=== PATIENT | female | born 2000 | race Two or more races ===

== ENCOUNTER 2024-04-02 13:12 | Emergency (ER) | payer MEDICAID ==
[~2024-04-02] VITALS: Ht 170.2 cm; Wt 52.6 kg
[2024-04-02 14:30] LABS: Basophils # (auto) 0 10 ^3/uL (0-0.2); Basophils % (auto) 0.6 % (0.0-2.0); Eosinophils # (auto) 0.3 10 ^3/uL (0-0.8); Eosinophils % (auto) 4.3 % (0.0-7.0); Hematocrit 37.6 % (36.0-46.0); Hemoglobin 13.2 g/dL (12.2-16.2); Lymphocytes # (auto) 1.1 10 ^3/uL (0.4-5.4); Lymphocytes % (auto) 16.4 % (10.0-50.0); Mean Corpuscular Hemoglobin 33.2 pg (28.0-32.0); Mean Corpuscular Hgb Conc. 35.2 g/dL (32.0-36.0); Mean Corpuscular Volume 94.4 fL (80.0-100.0); Monocytes # (auto) 0.6 10 ^3/uL (0-1.3); Monocytes % (auto) 8.6 % (0.0-12.0); Neutrophils # (auto) 4.6 10 ^3/uL (1.6-8.6); Neutrophils % (auto) 70.1 % (37.0-80.0); Platelet Count (auto) 220 10^3/uL (140-450); Red Blood Cells 3.99 10^6/uL (4.0-5.20); Red Cell Distribution Width 12.7 % (11.8-14.3); White Blood Cell 6.5 10^3/uL (4.4-10.8)
[2024-04-02] MEDS: ACETAMINOPHEN 500 MG TAB PO ONE (15:10)
[2024-04-02 15:29] LABS: Alanine Aminotransferase 14 U/L (7-40); Albumin 4.3 g/dL (3.2-4.8); Alkaline Phosphatase 43 U/L (46-116); Anion Gap 8 (5-15); Aspartate Aminotransferase 12 U/L (13-40); BUN/Creatinine Ratio 13.6 (10.0-20.0); Bilirubin, Total 0.4 mg/dL (0.2-1.0); Blood Urea Nitrogen 9 mg/dL (9-23); Calcium 9.6 mg/dL (8.7-10.4); Carbon Dioxide 22 mmol/L (20-30); Chloride 105 mmol/L (98-107); Glucose 71 mg/dL (74-106); Magnesium 1.8 mg/dL (1.6-2.6); Sodium 135 mmol/L (136-145); Uric Acid 3.9 mg/dL (3.1-7.8)
[2024-04-02 15:47] LABS: Urine Bacteria None Seen /hpf (None Seen)
[2024-04-02 16:17] LABS: Urine Blood Negative /uL (Negative); Urine Clarity Clear (Clear); Urine Color Light-Yellow (Yellow); Urine Protein, UAD TRACE (Negative); Urine Specific Gravity 1.025 (1.001-1.035); Urine Urobilinogen Normal (Negative); Urine WBC <1 /hpf (0 - 5); Urine pH 6.5 (5.0-9.0)
[2024-04-02] MEDS: SODIUM CHLORIDE 0.9% 1,000 ML IV ONE (17:11)
[2024-04-02 18:08] VITALS: BP 101/67; PULSE 83; RESP 17; TEMP 98.6; O2SAT 100
== END 2024-04-02 18:13 | disposition home or self-care (01) ==
LOC: ER 13:12
DX: O26.891 Other specified pregnancy related conditions, first trimester (principal); R51.9 Headache, unspecified; Z3A.14 14 weeks gestation of pregnancy; Z79.899 Other long term (current) drug therapy
CPT/HCPCS: 36415; 80053; 81001; 83615; 83735; 84550; 85025; 96360; 99283; J7030

== ENCOUNTER 2024-08-22 13:44 | Observation (INO) | payer MEDICAID ==
[~2024-08-22] VITALS: Ht 170.2 cm; Wt 68.0 kg
[2024-08-22] MEDS: TERBUTALINE SULFATE 1 MG/ML 1ML VIAL SC SCH (14:30)
[2024-08-22] MEDS ORDERED: NIFEdipine 10 MG CAP PO ONE (15:15)
--- NOTE | 2024-08-23 06:30 | DVHDS2 ---
Obstetrics Discharge Summary Obstetrics Discharge Summary Date of Admission: Aug 22, 2024 Date of Discharge: Aug 22, 2024 Reason For Admission: Observational/Evaluation (Obstetric Complications) Discharge Diagnosis: Others (pre term contractions no labor) Discharge Information: Activity (pelvic rest), Diet, Medications (Procardia), Instructions (Routine), Discharge to (Home), Discarge date (08/23/2024) ELLI MAYO DO Aug 23, 2024 06:30
== END 2024-08-22 15:49 | disposition home or self-care (01) ==
LOC: LDRP 13:44
PROVIDERS: ADMIT Obstetrics & Gynecology; ATTEND Obstetrics & Gynecology
DX: O62.9 Abnormality of forces of labor, unspecified (principal); Z3A.34 34 weeks gestation of pregnancy; Z79.899 Other long term (current) drug therapy; Z98.890 Other specified postprocedural states
CPT/HCPCS: 59025; 81002; 94760; 96372; G0378; J3105

== ENCOUNTER 2024-10-01 08:27 | Observation (INO) | payer MEDICAID ==
--- NOTE | 2024-10-01 11:36 | DVH ---
BIOPHYSICAL PROFILE HISTORY: term TECHNIQUE: Multiple transabdominal real-time grayscale sonographic images through the gravid uterus of the fetus with duplex Doppler color flow and M-mode spectral analysis FINDINGS: BIOPHYSICAL PROFILE: breathing score: 2 movement score: 2 tone score: 2 Quantitative BHARATI score: 2 (BHARATI: 15 Cm.) Total score: 8 IMPRESSION: Biophysical profile score: 8/8
--- NOTE | 2024-10-01 15:02 | DVHDS2 ---
Physician Discharge Progress N Final Diagnosis: 40wks ,labor check Operations or Procedures: Operations or Procedures nst 40wks,sono Condition on Discharge: Good Disposition: Home Discharge Instructions: Diet: Regular Activity: No Restrictions, As Tolerated Medications: na Follow Up Care: Specialist: 1d for induction Discharge Statement: "Patient was advised to return to the ER or call 911 if any headaches, dizziness, shortness of breath, chest pain, abdominal pain, bleeding, fevers, or worsening of medical condition. Patient was counseled about treatment plan, medications, possible side effects, patientverbalized understanding. All questions were answered to the best of my ability. This discharge took greater then 30 minutes in planning, reviewing documentation, counseling the patient, and discussing with other team members." Visit Coding OBGYN Date of Service: Oct 01, 2024 Billing Provider: EFE GOMEZ DO INFORMATICA MDM DEVELOPER Common Visit Codes: [id number] INP/OBS CARE (HIGH) INFORMATICA MDM DEVELOPER Procedure Codes: 10285-18- NON-STRESS TEST EFE GOMEZ DO Oct 01, 2024 15:02
== END 2024-10-01 11:55 | disposition home or self-care (01) ==
LOC: UNDOADMOB 10:33 → LDRP 10:33 → UNDODISOB 11:55
PROVIDERS: ADMIT Obstetrics & Gynecology; ATTEND Obstetrics & Gynecology
DX: O48.0 Post-term pregnancy (principal); Z98.890 Other specified postprocedural states; Z79.899 Other long term (current) drug therapy; Z3A.40 40 weeks gestation of pregnancy
CPT/HCPCS: 59025; 76819; 81002; 94760; G0378; 76818

== ENCOUNTER 2024-10-02 09:17 | Inpatient (IN) | payer MEDICAID ==
[~2024-10-02] VITALS: Ht 170.2 cm; Wt 72.6 kg
[2024-10-02] MEDS ORDERED: BUTORPHANOL TARTRATE 2 MG/1 ML VIAL IV PRN ×2 (09:30)
[2024-10-02 09:59] LABS: Urine Bacteria FEW /hpf (None Seen); Urine Blood Negative /uL (Negative); Urine Color Yellow (Yellow); Urine Protein, UAD TRACE (Negative); Urine Specific Gravity 1.025 (1.001-1.035); Urine Squamous Epithelial Cell MOD /hpf (<5); Urine Urobilinogen 4 mg/dL (Negative); Urine WBC 20 /HPF (0-5)
[2024-10-02 10:04] LABS: Eosinophils # (auto) 0.1 10 ^3/uL (0-0.8); Hemoglobin 10.1 g/dL (12.2-16.2); Neutrophils # (auto) 4.4 10 ^3/uL (1.6-8.6); Platelet Count (auto) 204 10^3/uL (140-450)
[2024-10-02 10:07] LABS: Basophils # (auto) 0 10 ^3/uL (0-0.2); Basophils % (auto) 0.8 % (0.0-2.0); Eosinophils % (auto) 1.9 % (0.0-7.0); Hematocrit 32.2 % (36.0-46.0); Lymphocytes # (auto) 0.9 10 ^3/uL (0.4-5.4); Lymphocytes % (auto) 15.3 % (10.0-50.0); Mean Corpuscular Hgb Conc. 31.4 g/dL (32.0-36.0); Mean Corpuscular Volume 79.7 fL (80.0-100.0); Monocytes # (auto) 0.6 10 ^3/uL (0-1.3); Monocytes % (auto) 10.3 % (0.0-12.0); Neutrophils % (auto) 71.7 % (37.0-80.0); Nucleated Red Blood Cells % 0.2 %; Red Blood Cells 4.04 10^6/uL (4.0-5.20); Red Cell Distribution Width 17.6 % (11.8-14.3); White Blood Cell 6.1 10^3/uL (4.4-10.8)
[2024-10-02 10:14] LABS: Alanine Aminotransferase 10 U/L (7-40); Albumin 4.1 g/dL (3.2-4.8); Anion Gap 8 (5-15); Aspartate Aminotransferase 14 U/L (13-40); BUN/Creatinine Ratio 11.7 (10.0-20.0); Bilirubin, Total 0.6 mg/dL (0.2-1.0); Blood Urea Nitrogen 11 mg/dL (9-23); Calcium 9.2 mg/dL (8.7-10.4); Carbon Dioxide 21 mmol/L (20-31); Glucose 90 mg/dL (74-106); Potassium 3.9 mmol/L (3.5-5.1); Sodium 138 mmol/L (136-145)
[2024-10-02 10:19] LABS: Urine Clarity Cloudy (Clear)
[2024-10-02 10:20] LABS: Alkaline Phosphatase 225 U/L (46-116); Chloride 109 mmol/L (98-107)
[2024-10-02 10:20] LABS: Amphetamine Screen, Urine Neg (NEGATIVE); Barbiturate Scree,Urine Neg (NEGATIVE); Benzodiazephine Screen, Urine Neg (NEGATIVE); Cannabinoid Screen, Urine Neg (NEGATIVE); Cocaine Screen, Urine Neg (NEGATIVE); Opiate Scree,Urine Neg (NEGATIVE); Phencyclidine Screen, Urine Neg (NEGATIVE)
[2024-10-02] MEDS: WITCH HAZEL-GLYCERIN PAD TOP PRN (10:29)
[2024-10-02] MEDS: DERMOPLAST 60ML BOTTLE TOP PRN (10:29)
[2024-10-02] MEDS: PHISODERM TOP SOLN 240ML BTL TOP PRN (10:29)
[2024-10-02] MEDS: LACTATED RINGER'S 1,000 ML IV SCH (10:29)
[2024-10-02 10:30] LABS: INR 0.9 (0.9-1.15); Partial Thromboplastin Time 28.5 SEC (24.5-34.5); Prothrombin Time 9.6 sec (9.3-11.8)
[2024-10-02] MEDS: miSOPROStol 50 MCG per PRE-CUT 1/2 TAB PO PRN (10:33)
--- NOTE | 2024-10-02 11:26 | DVHHP2 ---
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 Given her cervix recommended Cytotec to start her induction. Consent we discussed the risks benefits complications alternatives to induction not limited to serial monitoring and continued observation as outpatient for her to go into labor on her own. We also discussed the increased risks of section and associated with induction. Patient has full understanding adamantly wants to proceed. Patient also understands that if we if failed induction and baby appears healthy she may end up having delayed induction brought back for subsequent admission and induction and/or subsequently when she goes into labor on her own. This point we will start the induction with expectant management. All questions answered and encouraged. Past Medical History Cardiac: No pertinent Hx Pulmonary: No pertinent Hx Central Nervous System: No pertinent Hx GI: No pertinent Hx Hemotology/Oncology: No pertinent Hx Hepatobiliary: No pertinent Hx Psychiatric: No pertinent Hx Musculoskeletal: No pertinent Hx Rheumotologic: No pertinent Hx Infectious Disease: No peritnent Hx ENT: No pertinent Hx Renal/: No pertinent Hx Endocrine: No pertinent Hx Dermatology: No pertinent Hx Past Surgical History: No pertinent Hx OB History OB History Care: Good Care Ultrasounds: Normal mid trimester US Obstetrical Complications: None Medical Complications: None Allergies: Coded Allergies: NO KNOWN ALLERGIES (Unverified , 04/02/24) Home Meds No Active Prescriptions or Reported Meds Current Medications Current Medications Medications (Trade) Dose Ordered Sig/Stephanie Route PRN Reason Start Time Stop Time Status Last Admin Lactated Ringer's 1,000 ml @ 125 mls/hr Q8H IV 10/02/24 09:30 10/02/24 10:29 Witch Cristiane (Tucks) 1 pad PRN PRN TOP PERINEAL AREA DISCOMFORT 10/02/24 09:30 10/02/24 10:29 Sodium Lauryl Sulfate (Phisoderm) 240 ml PRN PRN TOP PERINEAL AREA DISCOMFORT 10/02/24 09:30 10/02/24 10:29 Benzocaine (Dermoplast) 1 applic PRN PRN TOP PERINEAL AREA DISCOMFORT 10/02/24 09:30 10/02/24 10:29 Butorphanol Tartrate (Stadol Injection) 1 mg Q4HPRN PRN IV MODERATE PAIN (4-6 PAIN SCALE) 10/02/24 09:30 Butorphanol Tartrate (Stadol Injection) 2 mg Q4HPRN PRN IV SEVERE PAIN (7-10 PAIN SCALE) 10/02/24 09:30 Lidocaine HCl (Xylocaine) 20 ml ONCE PRN IJ PERINEAL AREA DISCOMFORT 10/02/24 09:30 Misoprostol (Cytotec) 50 mcg Q4HPRN PRN PO CERVICAL RIPENING 10/02/24 09:45 10/02/24 10:33 Family & Social History Family/Social History Blood Type: B+ Rubella: not immune RPR/VDRL: Negative GBS Status: Negative HBsAG: Negative Review of Systems Constitutional: No symptom reported Ears, Nose, & Throat: No symptom reported Eyes: No symptom reported Pulmonary/Respiratory: No symptom reported Cardiovascular: No symptom reported Gastrointestinal: No symptom reported Genitourinary: No symptom reported Musculoskeletal: No symptom reported Skin: No symptom reported Psychiatric: No symptom reported Endocrine: No symptom reported Hemotologic/Lymphatic: No symptom reported OB Admission Exam Physical Exam HEENT: TMs Normal, Fontanelles Normal, Nasal Mucosa Normal, Eyes non-injected, Oropharynx Normal, PERRLA, Moist Membranes, EOMI Heart: Rhythm Normal Lungs: Clear Abdomen: Gravid Extremities: Normal Reflexes: Normal Cervical Dilatation: Fingertip Effacement: 25% Station: -3 Membranes: Intact Heart Rate: 130's Accelerations: Accelerations Present Decelerations: No Decelerations Short Term Variability: Present Fdc Variability: Average (6-25) Contractions on Admission: None OB Plan Plan Admitting Diagnosis: 40-1/7 weeks here for induction of labor Plan: Other (Cytotec induction) ELLI MAYO DO Oct 02, 2024 11:26
[2024-10-02] MEDS ORDERED: NALBUPHINE HCL 10 MG/1ml INJECTION IM PRN (19:00)
[2024-10-02] MEDS ORDERED: ONDANSETRON HCL 4 MG/2 ML VIAL IV PRN (19:00)
[2024-10-02] MEDS ORDERED: TERBUTALINE SULFATE 1 MG/ML 1ML VIAL SC PRN (21:30)
[2024-10-03] MEDS: LACT. RINGERS/OXYTOCIN 20UNITS 1,000 ML IV SCH (00:02)
[2024-10-03] MEDS: NALBUPHINE HCL 10 MG/1ml INJECTION IV PRN (00:28)
--- NOTE | 2024-10-03 08:22 | DVHPN2 ---
Chief Complaints Patient reports: No new complaints, Feels better, Other (Active labor 6cm reasuring heart tones and maternal condition) Nursing reports: No new complaints, No abdominal pain, No chest pain, No dizziness, No cough Objective Vitals Vital Signs Date Time Temp Pulse Resp B/P (MAP) Pulse Ox O2 Delivery O2 Flow Rate FiO2 10/03/24 05:00 104 16 117/65 Medications Current Medications Medications (Trade) Dose Ordered Sig/Stephanie Route PRN Reason Start Time Stop Time Status Last Admin Benzocaine (Dermoplast) 1 applic PRN PRN TOP PERINEAL AREA DISCOMFORT 10/02/24 09:30 10/02/24 10:29 Lactated Ringer's 1,000 ml @ 125 mls/hr Q8H IV 10/02/24 09:30 10/03/24 03:27 Lidocaine HCl (Xylocaine) 20 ml ONCE PRN IJ PERINEAL AREA DISCOMFORT 10/02/24 09:30 Misoprostol (Cytotec) 50 mcg Q4HPRN PRN PO CERVICAL RIPENING 10/02/24 09:45 10/02/24 10:33 Nalbuphine HCl (Nubain) 10 mg Q4HP PRN IM MODERATE PAIN (4-6 PAIN SCALE) 10/02/24 19:00 Cancel Nalbuphine HCl (Nubain) 10 mg Q4HP PRN IV MODERATE PAIN (4-6 PAIN SCALE) 10/02/24 19:00 10/03/24 05:00 Ondansetron HCl (Zofran) 4 mg Q4HPRN PRN IV NAUSEA / VOMITING 10/02/24 19:00 Oxytocin 1,000 ml @ 6 ml/hr Q24H IV 10/02/24 21:30 10/03/24 00:02 Sodium Lauryl Sulfate (Phisoderm) 240 ml PRN PRN TOP PERINEAL AREA DISCOMFORT 10/02/24 09:30 10/02/24 10:29 Terbutaline Sulfate (Brethine Inj) 0.25 mg ONCE PRN SC Uterine tachysystole 10/02/24 21:30 Witch Cristiane (Tucks) 1 pad PRN PRN TOP PERINEAL AREA DISCOMFORT 10/02/24 09:30 10/02/24 10:29 General: Normal Neck: Normal Lungs: Normal Cardiovascular: Normal Abdominal: Normal Musculoskeletal: Normal Extremities: Normal Skin: Normal Neurological: Normal Studies Laboratory Tests 10/02/24 09:30 Test 10/02/24 09:30 Range/Units Serum Glucose 90 74-106 mg/dL Ass/Plan Assessment Active labor SROM clear 6cm Plan expectant management ELLI MAYO DO Oct 03, 2024 08:22
[2024-10-03 12:06] LABS: RPR Non Reactive (Non Reactive)
--- NOTE | 2024-10-03 12:57 | LDN2 ---
Labor and Delivery Note Date 10/03/24 Age 24 1 Para 0 AB 0 EDC 40 2/7 EGA 40 + weeks Diagnosis Labor Vaginal Delivery: VTX Placenta: Spontaneous Sex: Male Weight 9lbs 4 oz Apgars pending Amniotic Fluid: Clear Anesthesia Nubain IV only Episiotomy: No Extension: Yes (grade 1 bilateral posterior and rt grade I anterior) Repaired with 2-0 Chromic EBL 350cc Labs Blood Bank 10/02/24 09:30: Blood Type B POSITIVE Complications none Conditions stable guarded Afloat Cryptologic Manager present shortly after delivery less 5 min after ELLI MAYO DO Oct 03, 2024 12:57
[2024-10-03 14:30] VITALS: BP 123/67; PULSE 83; RESP 18; TEMP 98.2; O2SAT 98
[2024-10-03] MEDS: LACT. RINGERS/OXYTOCIN 20UNITS 500 ML IV ONE ×4 (15:15→18:10)
[2024-10-03] MEDS: LIDOCAINE 2%HCL (LOCAL ANESTH.) INJ 20ML MDV IJ PRN (18:11)
[2024-10-03 18:40] VITALS: BP 106/66; PULSE 88; RESP 18; TEMP 98.1; O2SAT 96
[2024-10-03] MEDS: IBUPROFEN 600 MG TAB PO PRN (21:42)
[2024-10-03] MEDS: DOCUSATE SOD 100 MG CAP PO SCH (21:42)
[2024-10-03 23:20] VITALS: BP 108/59; PULSE 86; RESP 18; TEMP 98.3; O2SAT 98
[2024-10-04 02:40] VITALS: BP 103/62; PULSE 94; RESP 18; TEMP 97.8; O2SAT 96
[2024-10-04] MEDS: ACETAMINOPHEN 325 MG TAB PO PRN (05:46)
--- NOTE | 2024-10-04 06:11 | DVHPN2 ---
Chief Complaints Patient reports: No new complaints, Feels better, Other (PPD #1 stable improved requesting DC home) Nursing reports: No new complaints, No abdominal pain, No chest pain, No dizziness, No cough Objective Vitals Vital Signs Date Time Temp Pulse Resp B/P (MAP) Pulse Ox O2 Delivery O2 Flow Rate FiO2 10/04/24 02:40 97.8 94 18 103/62 (76) 96 97.8 10/03/24 19:00 Room Air Medications Current Medications Medications (Trade) Dose Ordered Sig/Stephanie Route PRN Reason Start Time Stop Time Status Last Admin Acetaminophen (Tylenol Tablet) 650 mg Q4HP PRN PO MILD PAIN (1-3 PAIN SCALE) 10/03/24 15:15 10/04/24 05:46 Docusate Sodium (Colace Capsule) 200 mg HS PO 10/03/24 22:00 10/03/24 21:42 Ibuprofen (Motrin Tablet) 600 mg Q6HP PRN PO MODERATE PAIN (4-6 PAIN SCALE) 10/03/24 15:15 10/03/24 21:42 General: Normal Neck: Normal Lungs: Normal Cardiovascular: Normal Abdominal: Normal (13 week size uterus firm minimal lochia pad count) Musculoskeletal: Normal Extremities: Normal, Normal pulses Skin: Normal Neurological: Normal Studies Laboratory Tests 10/02/24 09:30 Test 10/02/24 09:30 Range/Units Serum Glucose 90 74-106 mg/dL Ass/Plan Assessment PPD #1 stable improved stable Plan See DC summary See DC orders ELLI MAYO DO Oct 04, 2024 06:11
--- NOTE | 2024-10-04 06:23 | DVHDS2 ---
Discharge Summary Date of Admission Oct 02, 2024 at 09:17 Date of Discharge: Oct 04, 2024 Admitting Diagnosis Labor Wounds: perineum doing well Labs/Diagnostic Data: Laboratory Results Test 10/02/24 09:50 10/02/24 09:30 Urine Color Yellow (Yellow) Urine Clarity Cloudy (Clear) Urine pH 7.0 (5.0-9.0) Urine Specific Reva 1.025 (1.001-1.035) Urine Protein Trace (Negative) Urine Ketones Negative (Negative) Urine Blood Negative /uL (Negative) Urine Nitrite Negative (Negative) Urine Bilirubin Negative (Negative) Urine Urobilinogen 4 mg/dL (Negative) Urine Leukocyte Esterase 3+ /uL (Negative) Urine RBC 1 /hpf (0 - 4) Urine Microscopic WBC 20 /HPF (0-5) Urine Squamous Epithelial Cells Mod /hpf (<5) Urine Bacteria Few /hpf (None Seen) Urine Glucose Normal mg/dL (Normal) Urine Opiates Screen Neg (NEGATIVE) Urine Fentanyl Screen Neg (NEGATIVE) Urine Barbiturates Screen Neg (NEGATIVE) Urine Phencyclidine Screen Neg (NEGATIVE) Urine Amphetamines Screen Neg (NEGATIVE) Urine Benzodiazepines Screen Neg (NEGATIVE) Urine Cocaine Screen Neg (NEGATIVE) Urine Cannabinoids Screen Neg (NEGATIVE) White Blood Count 6.1 10^3/uL (4.4-10.8) Red Blood Count 4.04 10^6/uL (4.0-5.20) Hemoglobin 10.1 g/dL (12.2-16.2) Hematocrit 32.2 % (36.0-46.0) Mean Corpuscular Volume 79.7 fL (80.0-100.0) Mean Corpuscular Hemoglobin 25.0 pg (28.0-32.0) Mean Corpuscular Hemoglobin Concent 31.4 g/dL (32.0-36.0) Red Cell Distribution Width 17.6 % (11.8-14.3) Platelet Count 204 10^3/uL (140-450) Mean Platelet Volume 10.8 fL (6.9-10.8) Neutrophils (%) (Auto) 71.7 % (37.0-80.0) Lymphocytes (%) (Auto) 15.3 % (10.0-50.0) Monocytes (%) (Auto) 10.3 % (0.0-12.0) Eosinophils (%) (Auto) 1.9 % (0.0-7.0) Basophils (%) (Auto) 0.8 % (0.0-2.0) Neutrophils # (Auto) 4.4 10 ^3/uL (1.6-8.6) Lymphocytes # (Auto) 0.9 10 ^3/uL (0.4-5.4) Monocytes # (Auto) 0.6 10 ^3/uL (0-1.3) Eosinophils # (Auto) 0.1 10 ^3/uL (0-0.8) Basophils # (Auto) 0 10 ^3/uL (0-0.2) Nucleated Red Blood Cells 0.2 % Prothrombin Time 9.6 sec (9.3-11.8) Prothrombin Time INR 0.90 (0.9-1.15) Activated Partial Thromboplast Time 28.5 SEC (24.5-34.5) Sodium Level 138 mmol/L (136-145) Potassium Level 3.9 mmol/L (3.5-5.1) Chloride Level 109 mmol/L (98-107) Carbon Dioxide Level 21 mmol/L (20-31) Anion Gap 8 (5-15) Blood Urea Nitrogen 11 mg/dL (9-23) Creatinine 0.94 mg/dL (0.550-1.02) Glomerular Filtration Rate Calc 87 mL/min (>90) BUN/Creatinine Ratio 11.7 (10.0-20.0) Serum Glucose 90 mg/dL (74-106) Calcium Level 9.2 mg/dL (8.7-10.4) Total Bilirubin 0.6 mg/dL (0.2-1.0) Aspartate Amino Transferase (AST) 14 U/L (13-40) Alanine Aminotransferase (ALT) 10 U/L (7-40) Alkaline Phosphatase 225 U/L (46-116) Total Protein 7.0 g/dL (5.7-8.2) Albumin 4.1 g/dL (3.2-4.8) Rapid Plasma Reagin Non reactive (Non Reactive) Hepatitis C Antibody Negative (Negative) Other Laboratory Tests 10/02/24 09:30 Brief Hx & Hospital Course: s/p Consults/Reason for consult n/a Operations or Procedures 1st peritoneal vaginal repair Condition at Discharge: Good Final Diagnosis/Problems List s/p Discharge Disposition: Home SNF Discharge Will this Physician continue t: No Discharge Instruct/Medications Diet: Regular Activity: Light activity (pelvic rest 8 weeks ) Follow Up/Referral: 8 weeks primary OB ; Medications: none Discharge Statement: "Patient was advised to return to the ER or call 911 if any headaches, dizziness, shortness of breath, chest pain, abdominal pain, bleeding, fevers, or worsening of medical condition. Patient was counseled about treatment plan, medications, possible side effects, patientverbalized understanding. All questions were answered to the best of my ability. This discharge took greater then 30 minutes in planning, reviewing documentation, counseling the patient, and discussing with other team members." ASSESSMENT ASSESSMENT Assessment Visit Coding OBGYN Date of Service: Oct 04, 2024 Billing Provider: ELLI MAYO DO ANCHORMAN Common Visit Codes: [id number] INP/OBS CARE(HIGH) ANCHORMAN Procedure Codes: [id number] OB CARE,VAG DELIVERY ELLI MAYO DO Oct 04, 2024 06:23
[2024-10-04 07:07] VITALS: BP 106/64; PULSE 107; RESP 17; TEMP 97.9; O2SAT 95
[2024-10-04 15:22] VITALS: BP 110/68; PULSE 91; RESP 17; TEMP 98; O2SAT 95
[2024-10-04 18:40] VITALS: BP 118/59; PULSE 94; RESP 18; TEMP 97.8; O2SAT 98
[2024-10-04] MEDS: MEASLES, MUMPS & RUBELLA VAC(MMRII) 0.5ML SC ONE (20:37)
[2024-10-04 21:38] VITALS: BP 119/67; PULSE 90; RESP 18; TEMP 97.8; O2SAT 97
[2024-10-04 21:48] VITALS: PULSE 90; RESP 18; TEMP 97.8; O2SAT 97
[2024-10-05 04:06] LABS: Chlamydia Trachomatis, NAA Negative (Negative); Neisseria gonorrhoeae, NAA Negative (Negative)
[2024-10-05 10:07] LABS: Treponema Pallidum Ab LC Non Reactive (Non Reactive)
== END 2024-10-04 21:48 | disposition home or self-care (01) | DRG 560 ==
LOC: LDRP 09:17
PROVIDERS: ADMIT Obstetrics & Gynecology; ATTEND Obstetrics & Gynecology
PROC: 10E0XZZ Delivery of Products of Conception, External Approach (ICD-10-PCS; principal; 2024-10-03)
PROC: 0HQ9XZZ Repair Perineum Skin, External Approach (ICD-10-PCS; 2024-10-03)
PROC: 3E0DXGC Introduction of Other Therapeutic Substance into Mouth and Pharynx, External Approach (ICD-10-PCS; 2024-10-03)
DX: O48.0 Post-term pregnancy (principal); Z37.0 Single live birth; O70.0 First degree perineal laceration during delivery; Z3A.40 40 weeks gestation of pregnancy; Z79.899 Other long term (current) drug therapy
CPT/HCPCS: 36415; 59025; 59200; 59409; 80053; 80307; 81001; 85025; 85610; 85730; 86592; 86780; 86803; 86850; 86900; 86901; 94760; 94762; 96360; 96361; 96365; 96366; 96372; 96374; 96375; G0378; J2590